=== PATIENT | male | born 1990 | race Hispanic/Latino ===

== ENCOUNTER 2024-09-19 15:53 | Emergency (ER) | payer SELFPAY ==
[2024-09-19] MEDS ORDERED: Ketorolac Tromethamine 30 MG (1 mL) VIAL ONE (16:39)
[2024-09-19] MEDS ORDERED: Ondansetron PF 4 MG/2 ML Vial ONE (16:39)
[2024-09-19 17:20] LABS: #Basophils 0.07 10x3/uL (0.0-0.2); #Eosinophils 0.07 10x3/uL (0.0-0.5); #Monocytes 0.48 10x3/uL (0.0-1.1); #Neutrophils 3.72 10x3/uL (1.5-8.4); %Basophils 1.3 % (0.0-2.0); %Eosinophils 1.3 % (0.0-6.0); %Lymphocytes 20.1 % (18.0-47.0); %Monocytes 8.8 % (0.0-10.0); %Neutrophils 68.1 % (40.0-75.0); Hematocrit 40.3 % (38.8-50.0); Hemoglobin 13.4 g/dL (13.5-17.5); Mean Corpuscular Hemoglobin 30.8 pg (27.0-33.0); Mean Corpuscular Volume 92.6 fL (81.2-95.1); Platelet Count 245 10x3/uL (150-450); Red Blood Cell (RBC) Count 4.35 10x6/uL (4.32-5.72); White Blood Cell (WBC) Count 5.46 10x3/uL (3.5-10.5)
[2024-09-19 17:41] LABS: ALT (SGPT) 15 U/L (Less than 45); AST (SGOT) 31 U/L (11-34); Albumin 4.8 g/dL (3.1-4.5); Alkaline Phosphatase 90 U/L (40-110); Anion Gap 12 mmol/L (10-20); BUN (Urea Nitrogen) 36 mg/dL (8.9-20.6); Bilirubin, Total 0.9 mg/dL (0.3-1.2); Calc. Creatinine Clearance 0 mL/min (70-130); Calcium 9.5 mg/dL (7.8-10.44); Carbon Dioxide 26 mmol/L (22-29); Chloride 104 mmol/L (98-107); Globulin 3.1 g/dL (2.4-3.5); Glucose 104 mg/dL (70-105); Lipase 26 U/L (8-78); Potassium 3.7 mmol/L (3.5-5.1); Sodium 138 mmol/L (136-145)
== END 2024-09-19 18:33 | disposition home or self-care (01) ==
LOC: CSHERS 15:53
DX: K40.90 Unilateral inguinal hernia, without obstruction or gangrene, not specified as recurrent (principal)
CPT/HCPCS: 74177; 80053; 83605; 83690; 85025; 96374; 96375; J1885; J2270; J2405